=== PATIENT | male | born 1980 | race American Indian/Alaskan Native ===

== ENCOUNTER 2017-03-28 19:44 | Emergency (ER) | payer SELFPAY ==
[2017-03-28] MEDS ORDERED: ATIVAN IM ONE (20:30)
[2017-03-28] MEDS ORDERED: ATIVAN ONE (20:32)
[2017-03-28 21:41] LABS: Bilirubin,Urine NEG (Negative); Blood,Urine MOD (Negative); Color,Urine Straw (Yellow); Mucus,Urine FEW /HPF; Nitrite,Urine NEG (Negative); Urobilinogen,Urine < 2.0 mg/dL (<2.0)
[2017-03-28] MEDS ORDERED: KEPPRA 1,000 MG/NS 0.75% 100ML 1,000 MG/100 ML BAG IV ONE (21:41)
[2017-03-28 21:47] LABS: Amphetamine Screen,Urine PRESUMPTIVE NEGATIVE; Benzodiazepines Screen,Urine PRESUMPTIVE NEGATIVE; Cocaine Screen,Urine PRESUMPTIVE NEGATIVE; Methadone Screen,Urine PRESUMPTIVE NEGATIVE; Opiate Screen,Urine PRESUMPTIVE NEGATIVE
[2017-03-28 22:04] LABS: Cannabinoid Screen,Urine PRESUMPTIVE POSITIVE
[2017-03-28 22:11] LABS: Basophils % (Auto) 0.2 % (0.0-1.8); Eosinophils % (Auto) 0.3 % (0.0-4.3); Hemoglobin 17.5 gm/dl (11.8-15.2); Lymphocytes # (Auto) 1.6 K/mm3 (1.2-5.4); Lymphocytes % (Auto) 8.9 % (13.4-35.0); Mean Corpuscular HGB Conc 32 % (32-34); Mean Corpuscular Hemoglobin 29 pg (28-32); Mean Corpuscular Volume 90 fl (84-94); Monocytes # (Auto) 1.7 K/mm3 (0.0-0.8); Monocytes % (Auto) 9.3 % (0.0-7.3); Platelet Count 213 K/mm3 (140-440); Red Blood Count 5.98 M/mm3 (3.65-5.03); Red Cell Distribution Width 13.7 % (13.2-15.2)
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
[2017-03-28 22:25] LABS: BUN/Creatinine Ratio 12; Blood Urea Nitrogen 12 mg/dL (9-20); Calcium 9.9 mg/dL (8.4-10.2); Hemolysis Index 214
--- NOTE | 2017-03-28 22:56 | Cat Scan Report ---
FINAL REPORT EXAM: CT CERVICAL SPINE WO CON HISTORY: head injury TECHNIQUE: Spiral CT scanning of the cervical spine, with axial images and multiplanar reformations. PRIORS: None. FINDINGS: Mild degenerate spondylosis in C4-5 level. No acute compression deformity or gross malalignment of cervical vertebral bodies. No acute fracture identified. No acute, osseous central spinal canal encroachment. Paraspinal soft tissues grossly unremarkable. IMPRESSION: 1. No acute compression deformity or apparent fracture in the cervical spine.
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
--- NOTE | 2017-03-28 23:40 | XRay Report ---
FINAL REPORT PROCEDURE: XR WRIST 2V RT TECHNIQUE: RIGHT wrist radiographs, AP and lateral views. HISTORY: pain right wrist COMPARISON: No prior studies are available for comparison. FINDINGS: Fracture(s)and/or Dislocation(s): None. Alignment: Normal. Joint space(s): Normal. Soft tissues: Normal. Bone mineralization: Normal. Foreign bodies: None. IMPRESSION: Normal Examination
--- NOTE | 2017-03-28 23:42 | XRay Report ---
FINAL REPORT PROCEDURE: XR SHOULDER 2+V RT TECHNIQUE: Right shoulder radiographs including AP views in internal and external rotation and abduction. CPT 11933 HISTORY: pain right shoulder COMPARISON: No prior studies are available for comparison. FINDINGS: Fracture (s) and/or Dislocation(s): None . Joint space(s): Mild spur formation off the acromioclavicular joint. Soft tissues: Normal. Bone mineralization: Normal . Foreign bodies: None . IMPRESSION: No evidence of an acute fracture or dislocation. Mild arthritis
[2017-03-29] MEDS ORDERED: TYLENOL PO ONE (02:00)
[2017-03-29] MEDS ORDERED: TYLENOL ONE (02:05)
[2017-03-29 02:21] VITALS: BP 132/89
== END 2017-03-29 02:00 | disposition home or self-care (01) ==
LOC: ED 19:44
DX: R56.9 Unspecified convulsions (principal); S00.90XA Unspecified superficial injury of unspecified part of head, initial encounter; F10.920 Alcohol use, unspecified with intoxication, uncomplicated; M25.511 Pain in right shoulder; F17.200 Nicotine dependence, unspecified, uncomplicated; G89.29 Other chronic pain; Z88.6 Allergy status to analgesic agent; Y08.89XA Assault by other specified means, initial encounter; Y93.89 Activity, other specified; Y99.8 Other external cause status; Y92.090 Kitchen in other non-institutional residence as the place of occurrence of the external cause
CPT/HCPCS: 36415; 70450; 72125; 73030; 73100; 80048; 80184; 80307; 81001; 83735; 85025; 96365; 96366; 96372; 99284; G0480; J1953; J2060; 80320

== ENCOUNTER 2017-03-29 10:40 | Emergency (ER) | payer SELFPAY ==
[2017-03-29] MEDS ORDERED: ATIVAN IV ONE (14:44)
[2017-03-29] MEDS ORDERED: ATIVAN ONE (14:46)
[2017-03-29] MEDS ORDERED: KEPPRA 1,000 MG/NS 0.75% 100ML 1,000 MG/100 ML BAG IV ONE (16:09)
[2017-03-29 17:28] LABS: Basophils % (Auto) 0.3 % (0.0-1.8); Eosinophils % (Auto) 0.4 % (0.0-4.3); Hematocrit 45.5 % (35.5-45.6); Hemoglobin 15.6 gm/dl (11.8-15.2); Lymphocytes # (Auto) 1.9 K/mm3 (1.2-5.4); Lymphocytes % (Auto) 19.1 % (13.4-35.0); Mean Corpuscular HGB Conc 34 % (32-34); Mean Corpuscular Hemoglobin 30 pg (28-32); Mean Corpuscular Volume 87 fl (84-94); Monocytes % (Auto) 10.2 % (0.0-7.3); Platelet Count 196 K/mm3 (140-440); Red Blood Count 5.21 M/mm3 (3.65-5.03); Red Cell Distribution Width 13.6 % (13.2-15.2)
[2017-03-29 17:42] LABS: Alanine Aminotransferase 27 units/L (7-56); Albumin 4.5 g/dL (3.9-5); BUN/Creatinine Ratio 11; Bilirubin,Direct 0.3 mg/dL (0-0.2); Blood Urea Nitrogen 10 mg/dL (9-20); Calcium 9.4 mg/dL (8.4-10.2); Hemolysis Index 5
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
[2017-03-29] MEDS ORDERED: NORCO 5/325 PO ONE (18:57)
[2017-03-29 19:15] VITALS: BP 146/91
== END 2017-03-29 19:14 | disposition home or self-care (01) ==
LOC: ED 10:40
DX: G40.909 Epilepsy, unspecified, not intractable, without status epilepticus (principal); S00.83XA Contusion of other part of head, initial encounter; R07.89 Other chest pain; F17.200 Nicotine dependence, unspecified, uncomplicated; Z88.6 Allergy status to analgesic agent; Y04.0XXA Assault by unarmed brawl or fight, initial encounter; Y93.89 Activity, other specified; Y99.8 Other external cause status; Y92.89 Other specified places as the place of occurrence of the external cause
CPT/HCPCS: 36415; 80048; 80074; 80156; 83735; 85025; 96365; 96375; 99284; J1953; J2060

== ENCOUNTER 2017-08-09 22:07 | Emergency (ER) | payer SELFPAY ==
--- NOTE | 2017-08-09 23:01 | Emergency Department Report ---
ED Seizure HPI - General Chief Complaint: Seizure Stated Complaint: SEIZURE,HEADACHE Time Seen by Provider: 08/09/17 23:01 Source: patient, EMS Mode of arrival: Stretcher Limitations: No Limitations - History of Present Illness Initial Comments: Patient said he stopped taking his seizure medication 3 days ago because he was afraid his was going to run out of his medication. This evening he had a seizure. MD Complaint: seizure -: Sudden Description of Episode: loss of consciousness, tonic-clonic movement Witnessed:: No Trauma: Yes (head injury) Seizure History: known seizure disorder Possible Precipitating Event: head injury Associated Symptoms: denies other symptoms Treatments Prior to Arrival: none - Related Data Previous Rx's Medication Instructions Recorded Last Taken Type Ciprofloxacin HCl [Ciprofloxacin 500 mg PO Q12HR #10 tab 04/08/15 Unknown Rx TAB] HYDROcodone/APAP 5-325 [[place] 1 each PO Q6HR PRN #20 tablet 04/08/15 Unknown Rx 5/325] PHENobarbital 30 mg PO BID #60 tablet 04/08/15 Unknown Rx Promethazine [Phenergan TAB] 25 mg PO Q6HR PRN #30 tab 04/08/15 Unknown Rx carBAMazepine [TEGretol] 200 mg PO BID #60 tablet 04/08/15 Unknown Rx levETIRAcetam [Keppra] 500 mg PO BID #60 tablet 03/29/17 Unknown Rx PHENobarbital 30 mg PO BID #60 tablet 08/10/17 Unknown Rx levETIRAcetam [Keppra] 500 mg PO BID #60 tablet 08/10/17 Unknown Rx Allergies Allergy/AdvReac Type Severity Reaction Status Date / Time aspirin Allergy Hives Verified 03/29/17 11:26 ED Review of Systems ROS: Stated complaint: SEIZURE,HEADACHE Other details as noted in HPI Comment: All other systems reviewed and negative Constitutional: denies: chills, fever Eyes: denies: eye pain, eye discharge ENT: denies: dental pain Respiratory: denies: cough, shortness of breath Cardiovascular: denies: chest pain, palpitations, dyspnea on exertion Endocrine: no symptoms reported Gastrointestinal: denies: abdominal pain, nausea, vomiting, diarrhea Genitourinary: denies: urgency, dysuria, frequency Musculoskeletal: denies: back pain, joint swelling Skin: denies: rash, change in color Neurological: headache. denies: weakness, numbness, paresthesias Psychiatric: denies: anxiety, depression Hematological/Lymphatic: denies: easy bleeding, easy bruising ED Past Medical Hx - Past Medical History Previous Medical History?: Yes Hx Seizures: Yes Additional medical history: Patient states he has a "slipped disc "in his back for over 5 years for which he takes chronic pain medication. States he's been out of his pain medication for 2 days. - Surgical History Past Surgical History?: No - Social History Smoking Status: Current Every Day Smoker Substance Use Type: None - Medications Home Medications: Home Medications Medication Instructions Recorded Confirmed Last Taken Type Ciprofloxacin HCl [Ciprofloxacin 500 mg PO Q12HR #10 tab 04/08/15 Unknown Rx TAB] HYDROcodone/APAP 5-325 [[place] 1 each PO Q6HR PRN #20 tablet 04/08/15 Unknown Rx 5/325] PHENobarbital 30 mg PO BID #60 tablet 04/08/15 Unknown Rx Promethazine [Phenergan TAB] 25 mg PO Q6HR PRN #30 tab 04/08/15 Unknown Rx carBAMazepine [TEGretol] 200 mg PO BID #60 tablet 04/08/15 Unknown Rx levETIRAcetam [Keppra] 500 mg PO BID #60 tablet 03/29/17 Unknown Rx PHENobarbital 30 mg PO BID #60 tablet 08/10/17 Unknown Rx levETIRAcetam [Keppra] 500 mg PO BID #60 tablet 08/10/17 Unknown Rx ED Physical Exam - General Limitations: No Limitations General appearance: alert, in no apparent distress - Head Head exam: Present: atraumatic, normocephalic, normal inspection - Eye Eye exam: Present: normal appearance, PERRL, EOMI Pupils: Present: normal accommodation - ENT ENT exam: Present: normal exam, normal orophraynx, mucous membranes moist - Neck Neck exam: Present: normal inspection, full ROM. Absent: tenderness - Respiratory Respiratory exam: Present: normal lung sounds bilaterally. Absent: respiratory distress, wheezes, rhonchi - Cardiovascular Cardiovascular Exam: Present: regular rate, normal rhythm, normal heart sounds - GI/Abdominal GI/Abdominal exam: Present: soft, normal bowel sounds. Absent: distended, tenderness, guarding, rebound - Extremities Exam Extremities exam: Present: normal inspection, full ROM, normal capillary refill. Absent: tenderness - Back Exam Back exam: Present: normal inspection, full ROM. Absent: tenderness - Neurological Exam Neurological exam: Present: alert, oriented X3, CN II-XII intact - Psychiatric Psychiatric exam: Present: normal affect, normal mood - Skin Skin exam: Present: warm, dry, intact, normal color. Absent: rash ED Course Vital Signs 08/09/17 08/09/17 08/09/17 22:40 22:45 22:47 Temperature 98.9 F Pulse Rate 73 Respiratory 16 Rate Blood Pressure 128/87 116/82 O2 Sat by Pulse 95 99 96 Oximetry 08/09/17 08/09/17 08/09/17 22:56 23:00 23:15 Temperature Pulse Rate Respiratory 16 Rate Blood Pressure 120/87 132/80 O2 Sat by Pulse 96 99 95 Oximetry 08/09/17 08/09/17 08/10/17 23:30 23:45 00:00 Temperature Pulse Rate Respiratory Rate Blood Pressure 124/91 119/83 123/85 O2 Sat by Pulse 95 95 97 Oximetry 08/10/17 08/10/17 00:43 01:43 Temperature Pulse Rate Respiratory 16 16 Rate Blood Pressure O2 Sat by Pulse Oximetry ED Medical Decision Making - Lab Data Result diagrams: 08/09/17 23:39 08/09/17 23:39 - Radiology Data Radiology results: report reviewed, image reviewed - Medical Decision Making Seizure Disorder. Noncompliant with Seizure Medications. Critical care attestation.: If time is entered above; I have spent that time in minutes in the direct care of this critically ill patient, excluding procedure time. ED Disposition Clinical Impression: Seizure disorder, Noncompliance with medication regimen Disposition: - TO HOME OR SELFCARE Is pt being admited?: No Does the pt Need Aspirin: No Condition: Stable Instructions: Recurrent Seizures Adult (ED) Additional Instructions: Please follow up with the Neurologist Dr Morris tomorrow morning. Return to the ED if your condition worsens. Prescriptions: levETIRAcetam [Keppra] 500 mg PO BID #60 tablet PHENobarbital 30 mg PO BID #60 tablet Referrals: PRIMARY CARE, [Primary Care Provider] - 3-5 Days DREW MORRIS MD [Staff Physician] - 3-5 Days Time of Disposition: 02:33
[2017-08-09] MEDS ORDERED: KEPPRA 1,000 MG/NS 0.75% 100ML 1,000 MG/100 ML BAG IV ONE (23:53)
[2017-08-10 00:16] LABS: Hemoglobin 15.7 gm/dl (11.8-15.2); Mean Corpuscular HGB Conc 34 % (32-34); Mean Corpuscular Hemoglobin 31 pg (28-32); Mean Corpuscular Volume 90 fl (84-94); Platelet Count 205 K/mm3 (140-440); Red Blood Count 5.12 M/mm3 (3.65-5.03); Red Cell Distribution Width 13.5 % (13.2-15.2)
[2017-08-10] MEDS ORDERED: TYLENOL PO ONE (00:27)
[2017-08-10 00:31] LABS: Bilirubin,Urine NEG (Negative); Blood,Urine NEG (Negative); Color,Urine Yellow (Yellow); Mucus,Urine FEW /HPF
[2017-08-10 00:35] LABS: Alanine Aminotransferase 19 units/L (7-56); Albumin 4.5 g/dL (3.9-5)
[2017-08-10 00:39] LABS: Benzodiazepines Screen,Urine PRESUMPTIVE NEGATIVE; Methadone Screen,Urine PRESUMPTIVE NEGATIVE; Opiate Screen,Urine PRESUMPTIVE NEGATIVE
[2017-08-10 00:50] LABS: Bilirubin,Direct < 0.2 mg/dL (0-0.2)
--- NOTE | 2017-08-10 01:10 | Cat Scan Report ---
FINAL REPORT PROCEDURE: CT HEAD/BRAIN WO CON TECHNIQUE: Computerized tomography of the head was performed without contrast material. HISTORY: Seizure COMPARISON: 03/28/2017 FINDINGS: Skull and scalp: Mild soft tissue swelling over right parietal region of the skull, no skull fracture.. Paranasal sinuses: Normal. Ventricles and subarachnoid spaces: Normal. Cerebrum: No evidence of hemorrhage, acute infarction or mass . Cerebellum and brainstem: No evidence of hemorrhage, acute infarction or mass. Vasculature: Normal. Comments: None. IMPRESSION: There is no evidence of an acute intracranial process.
[2017-08-10 01:15] LABS: Amphetamine Screen,Urine PRESUMPTIVE POSITIVE; Cannabinoid Screen,Urine PRESUMPTIVE POSITIVE; Cocaine Screen,Urine PRESUMPTIVE POSITIVE
[2017-08-10 01:55] LABS: BUN/Creatinine Ratio 14; Blood Urea Nitrogen 11 mg/dL (9-20); Calcium 9.6 mg/dL (8.4-10.2); Hemolysis Index 9
[2017-08-10 05:48] VITALS: BP 111/78
== END 2017-08-10 06:03 | disposition home or self-care (01) ==
LOC: ED 22:07
DX: G40.909 Epilepsy, unspecified, not intractable, without status epilepticus (principal); F17.200 Nicotine dependence, unspecified, uncomplicated; Z88.6 Allergy status to analgesic agent
CPT/HCPCS: 36415; 70450; 80048; 80074; 80184; 80307; 81001; 85027; 96365; 99285; J1953

== ENCOUNTER 2017-09-13 12:55 | Emergency (ER) | payer SELFPAY ==
[2017-09-13 13:15] VITALS: BP 151/102
[2017-09-13] MEDS ORDERED: LIDOCAINE VISCOUS 2% PO ONE (14:41)
[2017-09-13] MEDS ORDERED: BICILLIN L-A IM ONE (14:41)
[2017-09-13] MEDS ORDERED: TYLENOL PO ONE (14:42)
--- NOTE | 2017-09-13 14:48 | Emergency Department Report ---
ED ENT HPI - General Chief complaint: Sore Throat Stated complaint: THROAT PAIN Time Seen by Provider: 09/13/17 14:37 Source: patient Mode of arrival: Ambulatory Limitations: No Limitations - History of Present Illness Initial comments: This is a 37-year-old male nontoxic, well nourished in appearance, no acute signs of distress presents to the ED with c/o of sore throat. Patient describes sore throat as swallowing razer blades. Patient denies any fever, chills, headache, stiff neck, nausea, vomiting, chest pain, shortness of breath, numbness or tingling. Patient denies any drooling or hoarseness. Patient stated allergies to aspirin. PMH includes ARAM. complaint: sore throat -: days(s) (2) Location: throat Severity: mild Severity scale (0 -10): 8 Quality: aching Consistency: constant Improves with: none Worsens with: swallowing Associated Symptoms: pain with swallowing, sore throat. denies: fever, cough, gum swelling, toothache, tinnitus, hearing loss, discharge from ear, rhinorrhea - Related Data Previous Rx's Medication Instructions Recorded Last Taken Type Ciprofloxacin HCl [Ciprofloxacin 500 mg PO Q12HR #10 tab 04/08/15 Unknown Rx TAB] HYDROcodone/APAP 5-325 [[place] 1 each PO Q6HR PRN #20 tablet 04/08/15 Unknown Rx 5/325] PHENobarbital 30 mg PO BID #60 tablet 04/08/15 Unknown Rx Promethazine [Phenergan TAB] 25 mg PO Q6HR PRN #30 tab 04/08/15 Unknown Rx carBAMazepine [TEGretol] 200 mg PO BID #60 tablet 04/08/15 Unknown Rx levETIRAcetam [Keppra] 500 mg PO BID #60 tablet 03/29/17 Unknown Rx PHENobarbital 30 mg PO BID #60 tablet 08/10/17 Unknown Rx levETIRAcetam [Keppra] 500 mg PO BID #60 tablet 08/10/17 Unknown Rx Acetaminophen 500 mg PO Q8H PRN #30 tablet 09/13/17 Unknown Rx Nystas/Diphen/Xyl Visc/Mylanta 15 ml MM Q6H PRN 5 Days ml 09/13/17 Unknown Rx [Magic Mouthwash] Allergies Allergy/AdvReac Type Severity Reaction Status Date / Time aspirin Allergy Hives Verified 03/29/17 11:26 ED Dental HPI - General Chief complaint: Sore Throat Stated complaint: THROAT PAIN Time Seen by Provider: 09/13/17 14:37 Source: patient Mode of arrival: Ambulatory Limitations: No Limitations - Related Data Previous Rx's Medication Instructions Recorded Last Taken Type Ciprofloxacin HCl [Ciprofloxacin 500 mg PO Q12HR #10 tab 04/08/15 Unknown Rx TAB] HYDROcodone/APAP 5-325 [[place] 1 each PO Q6HR PRN #20 tablet 04/08/15 Unknown Rx 5/325] PHENobarbital 30 mg PO BID #60 tablet 04/08/15 Unknown Rx Promethazine [Phenergan TAB] 25 mg PO Q6HR PRN #30 tab 04/08/15 Unknown Rx carBAMazepine [TEGretol] 200 mg PO BID #60 tablet 04/08/15 Unknown Rx levETIRAcetam [Keppra] 500 mg PO BID #60 tablet 03/29/17 Unknown Rx PHENobarbital 30 mg PO BID #60 tablet 08/10/17 Unknown Rx levETIRAcetam [Keppra] 500 mg PO BID #60 tablet 08/10/17 Unknown Rx Acetaminophen 500 mg PO Q8H PRN #30 tablet 09/13/17 Unknown Rx Nystas/Diphen/Xyl Visc/Mylanta 15 ml MM Q6H PRN 5 Days ml 09/13/17 Unknown Rx [Magic Mouthwash] Allergies Allergy/AdvReac Type Severity Reaction Status Date / Time aspirin Allergy Hives Verified 03/29/17 11:26 ED Review of Systems ROS: Stated complaint: THROAT PAIN Other details as noted in HPI Constitutional: denies: chills, fever Eyes: denies: eye pain, eye discharge, vision change ENT: throat pain. denies: ear pain Respiratory: denies: cough, shortness of breath, wheezing Cardiovascular: denies: chest pain, palpitations Endocrine: no symptoms reported Gastrointestinal: denies: abdominal pain, nausea, diarrhea Genitourinary: denies: urgency, dysuria Musculoskeletal: denies: back pain, joint swelling, arthralgia Skin: denies: rash, lesions Neurological: denies: headache, weakness, paresthesias Psychiatric: denies: anxiety, depression Hematological/Lymphatic: denies: easy bleeding, easy bruising ED Past Medical Hx - Past Medical History Hx Seizures: Yes Additional medical history: Patient states he has a "slipped disc "in his back for over 5 years for which he takes chronic pain medication. States he's been out of his pain medication for 2 days. - Surgical History Past Surgical History?: No - Social History Smoking Status: Current Every Day Smoker Substance Use Type: None - Medications Home Medications: Home Medications Medication Instructions Recorded Confirmed Last Taken Type Ciprofloxacin HCl [Ciprofloxacin 500 mg PO Q12HR #10 tab 04/08/15 Unknown Rx TAB] HYDROcodone/APAP 5-325 [[place] 1 each PO Q6HR PRN #20 tablet 04/08/15 Unknown Rx 5/325] PHENobarbital 30 mg PO BID #60 tablet 04/08/15 Unknown Rx Promethazine [Phenergan TAB] 25 mg PO Q6HR PRN #30 tab 04/08/15 Unknown Rx carBAMazepine [TEGretol] 200 mg PO BID #60 tablet 04/08/15 Unknown Rx levETIRAcetam [Keppra] 500 mg PO BID #60 tablet 03/29/17 Unknown Rx PHENobarbital 30 mg PO BID #60 tablet 08/10/17 Unknown Rx levETIRAcetam [Keppra] 500 mg PO BID #60 tablet 08/10/17 Unknown Rx Acetaminophen 500 mg PO Q8H PRN #30 tablet 09/13/17 Unknown Rx Nystas/Diphen/Xyl Visc/Mylanta 15 ml MM Q6H PRN 5 Days ml 09/13/17 Unknown Rx [Magic Mouthwash] ED Physical Exam - General Limitations: No Limitations General appearance: alert, in no apparent distress - Head Head exam: Present: atraumatic, normocephalic - Eye Eye exam: Present: normal appearance Pupils: Present: normal accommodation - ENT ENT exam: Present: mucous membranes moist, TM's normal bilaterally, normal external ear exam - Expanded ENT Exam Expanded Ear exam: Present: normal external inspection Mouth exam: Present: normal external inspection, tongue normal. Absent: drooling, trismus, muffled voice, tongue elevation, laceration Teeth exam: Present: normal inspection Throat exam: Positive: tonsillar erythema, tonsillomegaly (2+), tonsillar exudate, other (Uvula midline. No abscess or swelling noted.). Negative: R peritonsillar mass, L peritonsillar mass - Neck Neck exam: Present: normal inspection, full ROM, lymphadenopathy (bilateral tonsillar). Absent: tenderness, meningismus - Respiratory Respiratory exam: Present: normal lung sounds bilaterally. Absent: respiratory distress, wheezes, rales, rhonchi, stridor, chest wall tenderness, accessory muscle use, decreased breath sounds, prolonged expiratory - Cardiovascular Cardiovascular Exam: Present: regular rate, normal rhythm, normal heart sounds. Absent: bradycardia, tachycardia, irregular rhythm, systolic murmur, diastolic murmur, rubs, gallop - GI/Abdominal GI/Abdominal exam: Present: soft, normal bowel sounds - Rectal Rectal exam: Present: deferred - Extremities Exam Extremities exam: Present: normal inspection, full ROM, normal capillary refill - Back Exam Back exam: Present: normal inspection, full ROM - Neurological Exam Neurological exam: Present: alert, oriented X3, normal gait - Psychiatric Psychiatric exam: Present: normal affect, normal mood - Skin Skin exam: Present: warm, dry, intact, normal color. Absent: rash ED Course Vital Signs 09/13/17 13:11 Temperature 98.5 F Pulse Rate 85 Respiratory 16 Rate Blood Pressure 151/102 O2 Sat by Pulse 99 Oximetry - Reevaluation(s) Reevaluation #1: 09/13/17 14:49 Patient is speaking in full sentences with no signs of distress noted. ED Medical Decision Making - Medical Decision Making This is a 37-year-old male that presents with tonsillitis. Patient is stable was examined by me. There is no drooling. No tonsillar abscess noted. Uvula is midline. Patient received Bicillin IM in the ED. Vital signs are stable. Patient is not febrile and normal heart rate. Patient was instructed to Follow- up with a primary care doctor in 3-5 days or if symptoms worsen and continue return to emergency room as soon as possible. At time of discharge, the patient does not seem toxic or ill in appearance. No acute signs of distress noted. Patient agrees to discharge treatment plan of care. No further questions noted by the patient. Critical care attestation.: If time is entered above; I have spent that time in minutes in the direct care of this critically ill patient, excluding procedure time. ED Disposition Clinical Impression: Tonsillitis with exudate Disposition: - TO HOME OR SELFCARE Is pt being admited?: No Does the pt Need Aspirin: No Condition: Stable Instructions: Tonsillitis (ED) Additional Instructions: Follow-up with a primary care doctor in 3-5 days or if symptoms worsen and continue return to emergency room as soon as possible. Prescriptions: Acetaminophen 500 mg PO Q8H PRN #30 tablet PRN Reason: Pain , Severe (7-10) Nystas/Diphen/Xyl Visc/Mylanta [Magic Mouthwash] 15 ml MM Q6H PRN 5 Days ml PRN Reason: Sore Throat Referrals: PRIMARY CAREMD [Primary Care Provider] - 3-5 Days ROBIN ALAMO MD [Staff Physician] - 3-5 Days [facility] [Outside] - 3-5 Days [facility] [Outside] - 3-5 Days BRENNAN JACKSON MD [Staff Physician] - 3-5 Days Forms: Work/School Release Form(ED)
== END 2017-09-13 15:04 | disposition home or self-care (01) ==
LOC: ED 12:55
DX: J03.90 Acute tonsillitis, unspecified (principal); R56.9 Unspecified convulsions; F17.200 Nicotine dependence, unspecified, uncomplicated; Z88.6 Allergy status to analgesic agent; Z79.899 Other long term (current) drug therapy
CPT/HCPCS: 96372; 99282; J0561

== ENCOUNTER 2018-03-21 17:11 | Emergency (ER) | payer SELFPAY ==
[2018-03-21 18:44] LABS: Hematocrit 46.9 % (35.5-45.6); Hemoglobin 15.6 gm/dl (11.8-15.2); Mean Corpuscular HGB Conc 33 % (32-34); Mean Corpuscular Volume 91 fl (84-94); Platelet Count 215 K/mm3 (140-440); Red Blood Count 5.15 M/mm3 (3.65-5.03); Red Cell Distribution Width 13.2 % (13.2-15.2)
[2018-03-21 19:29] LABS: BUN/Creatinine Ratio 10; Blood Urea Nitrogen 11 mg/dL (9-20); Calcium 9.2 mg/dL (8.4-10.2); Hemolysis Index 13
[2018-03-21] MEDS ORDERED: NACL 0.9% 1000 ML 1,000 ML IV ONE (19:51)
[2018-03-21] MEDS ORDERED: DepaCON 500 MG in NACL 0.9% 100 ML IV ONE (19:51)
[2018-03-21] MEDS ORDERED: SUBLIMAZE IV ONE ×2 (19:51→19:52)
--- NOTE | 2018-03-21 19:53 | Emergency Department Report ---
ED General Adult HPI - General Chief complaint: Seizure Stated complaint: LT SIDE PAIN Time Seen by Provider: 03/21/18 19:33 Source: patient, family, EMS (ems notes not available at time of chart dictation), RN notes reviewed, old records reviewed Mode of arrival: Stretcher Limitations: Physical Limitation - History of Present Illness Initial comments: This is a 38-year-old gentleman, reported history of seizure disorder, was previously taking valproic acid, and has not been on antiepileptic medication for a few months. Patient is accompanied by a significant other, and as per reported history, patient had a seizure today, and landed on his left chest wall and hemithorax. He doesn't really recall the seizure, but he denies severe headache, midline neck pain, chest pain, has left flank and left upper quadrant abdominal pain, and bilateral anterior thigh pain. He denies fevers and chills, denies extremity weakness or numbness, and reports noncompliance with antiepileptic medication. His leg pain is sharp and achy, throbbing, increases with palpation and decreases with rest. It does not radiate anywhere. His left upper quadrant pain and left lateral rib pain are sharp, increased with palpation and decreased with rest. They do not radiate anywhere. -: Sudden Location: chest (left distal lateral chest), abdomen, left, right, lower extremity Radiation: non-radiation Quality: other Consistency: other Improves with: other Associated Symptoms: seizure. denies: confusion, chest pain, cough, diaphoresis, fever/chills - Related Data Previous Rx's Medication Instructions Recorded Last Taken Type carBAMazepine [TEGretol] 200 mg PO BID #60 tablet 04/08/15 Unknown Rx PHENobarbital 30 mg PO BID #60 tablet 08/10/17 Unknown Rx Acetaminophen [Tylenol Arthritis] 650 mg PO Q6HR PRN #30 tablet.er 03/21/18 Unk nown Rx Valproic Acid 500 mg PO BID #120 capsule 03/21/18 Unknown Rx Allergies Allergy/AdvReac Type Severity Reaction Status Date / Time aspirin Allergy Hives Verified 03/29/17 11:26 ED Review of Systems ROS: Stated complaint: LT SIDE PAIN Other details as noted in HPI Constitutional: malaise. denies: fever Eyes: denies: vision change ENT: denies: epistaxis Cardiovascular: other (left lateral rib pain) Gastrointestinal: abdominal pain Musculoskeletal: arthralgia, myalgia. denies: back pain Skin: denies: lesions Neurological: denies: weakness Psychiatric: anxiety ED Past Medical Hx - Past Medical History Previous Medical History?: Yes Hx Seizures: Yes Additional medical history: Patient states he has a "slipped disc "in his back for over 5 years for which he takes chronic pain medication. States he's been out of his pain medication for 2 days. - Social History Smoking Status: Current Every Day Smoker Substance Use Type: Alcohol - Medications Home Medications: Home Medications Medication Instructions Recorded Confirmed Last Taken Type carBAMazepine [TEGretol] 200 mg PO BID #60 tablet 04/08/15 03/21/18 Unknown Rx PHENobarbital 30 mg PO BID #60 tablet 08/10/17 03/21/18 Unknown Rx Acetaminophen [Tylenol Arthritis] 650 mg PO Q6HR PRN #30 tablet.er 03/21/18 Unknown Rx Valproic Acid 500 mg PO BID #120 capsule 03/21/18 Unknown Rx ED Physical Exam - General Limitations: Physical Limitation General appearance: alert, anxious - Head Head exam: Present: atraumatic, normocephalic - Eye Eye exam: Present: normal appearance, PERRL, EOMI, other (visual acuity intact to finger counting, color perception, reading at a close distance). Absent: nystagmus - ENT ENT exam: Present: normal exam, normal orophraynx, mucous membranes moist, normal external ear exam - Neck Neck exam: Present: normal inspection, full ROM. Absent: tenderness, meningismus - Respiratory Respiratory exam: Present: normal lung sounds bilaterally, chest wall tenderness (left lateral thoracic tenderness). Absent: respiratory distress - Cardiovascular Cardiovascular Exam: Present: regular rate, normal rhythm, normal heart sounds. Absent: bradycardia, tachycardia, irregular rhythm, systolic murmur, diastolic murmur, rubs, gallop - GI/Abdominal GI/Abdominal exam: Present: soft, tenderness (left upper quadrant tenderness). Absent: distended, guarding, rebound, rigid, pulsatile mass - Rectal Rectal exam: Present: deferred - Extremities Exam Extremities exam: Present: normal inspection, full ROM, tenderness (there is anterior thyroid tenderness.), other (there is no long bony tenderness. Muscular compartment soft. No pain with passive range of motion of the great toes. 2+ pulses in the upper, lower extremities bilaterally.). Absent: calf tenderness - Back Exam Back exam: Present: normal inspection, full ROM. Absent: paraspinal tenderness, vertebral tenderness - Neurological Exam Neurological exam: Present: alert, oriented X3, other (Extraocular movements intact. Tongue midline. No facial droop. Facial sensation intact to light touch in the V1, V2, V3 distribution bilaterally. 5 and 5 strength in 4 extremities.. Sensation is intact to light touch in 4 extremities.). Absent: motor sensory deficit - Psychiatric Psychiatric exam: Present: anxious - Skin Skin exam: Present: warm, dry, intact, normal color. Absent: rash ED Course Vital Signs 03/21/18 03/21/18 03/21/18 18:04 18:06 18:15 Temperature 98.1 F Pulse Rate 59 L 67 Respiratory 10 L 10 L Rate Blood Pressure 134/91 134/91 138/72 Blood Pressure [Right] O2 Sat by Pulse 98 Oximetry 03/21/18 03/21/18 03/21/18 18:30 18:45 19:00 Temperature Pulse Rate 66 56 L 55 L Respiratory 11 L 11 L 13 Rate Blood Pressure 134/91 139/80 137/85 Blood Pressure [Right] O2 Sat by Pulse Oximetry 03/21/18 03/21/18 03/21/18 19:15 19:30 19:46 Temperature Pulse Rate 60 71 63 Respiratory 11 L 9 L 12 Rate Blood Pressure 130/79 130/79 130/79 Blood Pressure [Right] O2 Sat by Pulse Oximetry 03/21/18 03/21/18 03/21/18 20:28 20:30 20:32 Temperature Pulse Rate 62 Respiratory 14 Rate Blood Pressure 130/79 130/79 Blood Pressure 136/86 [Right] O2 Sat by Pulse 94 98 98 Oximetry 03/21/18 03/21/18 20:46 21:00 Temperature Pulse Rate Respiratory Rate Blood Pressure 136/86 121/81 Blood Pressure [Right] O2 Sat by Pulse 98 94 Oximetry - Reevaluation(s) Reevaluation #1: 03/21/18 21:56 Differential diagnosis, including but not limited to: Breakthrough seizure, intracranial injury, thoracic injury, rib fracture, rib contusion, splenic injury, intra-abdominal injury, medication noncompliance Assessment and plan: 30-year-old gentleman with presumed breakthrough seizure secondary to medication noncompliance, with bilateral anterior quadricep pain, left upper quadrant pain, left lateral rib pain. Patient clinically sober at this point in time, with a GCS of 15, with an NIH score of 0. Primary, secondary survey not remarkable for any significant penetrating injury. We will treat the patient's pain, load with valproic acid, and obtain CT scan of the abdomen and pelvis, noncontrast CT scan of the brain. Patient is clinically sober at this time. The cervical spine is cleared through nexus and bruneian c spine rule We'll reassess once his initial data points have resulted. 03/21/18 22:01 Reevaluation #2: 03/21/18 23:13 CT scan of the brain is negative for acute disease. CT scan of the abdomen pelvis is negative for acute disease. The patient is observed in the emergency room for a few hours, without clinical decompensation. Upon reassessment the patient is sleeping comfortably, and in no acute distress. He is able to walk with a steady gait, with a slight limp. And he will be discharged with a prescription for valproic acid, instructions to not drive or operate motor vehicles for the next 6 months, and to follow up with an outpatient primary care doctor or neurologist. He is counseled to expect to be sore. 03/21/18 23:28 ED Medical Decision Making - Lab Data Result diagrams: 03/21/18 18:27 03/21/18 18:27 Vital Signs 03/21/18 03/21/18 03/21/18 18:04 18:06 18:15 Temperature 98.1 F Pulse Rate 59 L 67 Respiratory 10 L 10 L Rate Blood Pressure 134/91 134/91 138/72 Blood Pressure [Right] O2 Sat by Pulse 98 Oximetry 03/21/18 03/21/18 03/21/18 18:30 18:45 19:00 Temperature Pulse Rate 66 56 L 55 L Respiratory 11 L 11 L 13 Rate Blood Pressure 134/91 139/80 137/85 Blood Pressure [Right] O2 Sat by Pulse Oximetry 03/21/18 03/21/18 03/21/18 19:15 19:30 19:46 Temperature Pulse Rate 60 71 63 Respiratory 11 L 9 L 12 Rate Blood Pressure 130/79 130/79 130/79 Blood Pressure [Right] O2 Sat by Pulse Oximetry 03/21/18 03/21/18 03/21/18 20:28 20:30 20:32 Temperature Pulse Rate 62 Respiratory 14 Rate Blood Pressure 130/79 130/79 Blood Pressure 136/86 [Right] O2 Sat by Pulse 94 98 98 Oximetry Lab Results 03/21/18 03/21/18 Range/Units 18:27 18:27 WBC 6.8 (4.5-11.0) K/mm3 RBC 5.15 H (3.65-5.03) M/mm3 Hgb 15.6 H (11.8-15.2) gm/dl Hct 46.9 H (35.5-45.6) % MCV 91 (84-94) fl MCH 30 (28-32) pg MCHC 33 (32-34) % RDW 13.2 (13.2-15.2) % Plt Count 215 (140-440) K/mm3 Sodium 139 (137-145) mmol/L Potassium 3.9 (3.6-5.0) mmol/L Chloride 104.2 (98-107) mmol/L Carbon Dioxide 25 (22-30) mmol/L Anion Gap 14 mmol/L BUN 11 (9-20) mg/dL Creatinine 1.1 (0.8-1.5) mg/dL Estimated GFR > 60 ml/min BUN/Creatinine Ratio 10 % Glucose 89 (75-100) mg/dL Calcium 9.2 (8.4-10.2) mg/dL Total Creatine Kinase 462 H (55-170) units/L - Radiology Data Radiology results: report reviewed, image reviewed Rib series x-ray negative for acute disease. Bilateral femur x-ray negative for acute disease. X-ray of the pelvis is negative for acute disease. Critical care attestation.: If time is entered above; I have spent that time in minutes in the direct care of this critically ill patient, excluding procedure time. ED Disposition Clinical Impression: History of seizure, Left flank pain Disposition: DC-01 TO HOME OR SELFCARE Is pt being admited?: No Does the pt Need Aspirin: No Condition: Good Additional Instructions: Rest, and avoid heavy lifting. Avoid strenuous physical activities. Take the medications as needed/directed. Do not drive or operate motor vehicles for the next 6 months. Follow up with a primary care doctor or neurology specialist within the next 7-10 days. Return to the ER right away with new pain, worsened pain, migration of pain, projectile vomiting, change in mental status, confusion, inability to speak, inability to breathe, new, worsening or different symptoms. Prescriptions: Acetaminophen [Tylenol Arthritis] 650 mg PO Q6HR PRN #30 tablet.er PRN Reason: Pain Valproic Acid 500 mg PO BID #120 capsule Referrals: RIC CHAMBERLAIN MD [Referring] - 7-10 days ANDREA HAWKINS MD [Staff Physician] - 7-10 days DREW MORRIS MD [Staff Physician] - 7-[address] [facility] [Provider Group] - 7-10 days
--- NOTE | 2018-03-21 21:50 | XRay Report ---
FINAL REPORT EXAM: XR PELVIS 1-2V HISTORY: fall leg pain TECHNIQUE: AP pelvis Comparison: CT performed same day FINDINGS: Normal bony mineralization. No fracture or dislocation. IMPRESSION: No fracture or dislocation bony pelvis.
--- NOTE | 2018-03-21 21:53 | XRay Report ---
FINAL REPORT EXAM: XR FEMUR BILAT 2+V HISTORY: bilateral leg pain after sezirue TECHNIQUE: Four views of each femur were performed Comparison: None FINDINGS: Normal bony mineralization. No fracture or dislocation. No radiopaque foreign body or soft tissue gas. No degenerative arthritis. IMPRESSION: Negative bilateral femur plain-film series for acute bony injury following seizure.
--- NOTE | 2018-03-21 21:55 | XRay Report ---
FINAL REPORT EXAM: XR RIBS UNI W PA CHEST 3+V LT HISTORY: fall, left-sided rib pain TECHNIQUE: Frontal chest x-ray with four views of the left ribs Comparison: Lung bases from CT abdomen and pelvis today FINDINGS: Normal heart size. Lungs are clear and well expanded without focal infiltrate or consolidation. Rib detail images demonstrate no definite displaced rib fracture or nondisplaced rib fracture. IMPRESSION: No rib fractures or pneumothorax. Unremarkable single-view chest x-ray.
--- NOTE | 2018-03-21 22:28 | Cat Scan Report ---
FINAL REPORT PROCEDURE: CT HEAD/BRAIN WO CON TECHNIQUE: Computerized tomography of the head was performed without contrast material. HISTORY: sz head trauma COMPARISON: March 28, 2017 FINDINGS: Skull and scalp: Right parietal soft tissue swelling. Paranasal sinuses: Normal. Ventricles and subarachnoid spaces: Normal. Cerebrum: No evidence of hemorrhage, acute infarction or mass . Cerebellum and brainstem: No evidence of hemorrhage, acute infarction or mass. Vasculature: Normal. Comments: None. IMPRESSION: No acute intracranial abnormality.
--- NOTE | 2018-03-21 22:57 | Cat Scan Report ---
FINAL REPORT PROCEDURE: CT ABDOMEN PELVIS W CON TECHNIQUE: Computerized axial tomography of the abdomen and pelvis was performed after the IV inject ion of iodinated nonionic contrast. HISTORY: left-sided flank and abdominal pain after blunt tr COMPARISON: No prior studies are available for comparison. FINDINGS: Visualized lower thorax: No significant abnormality. Liver: Hepatomegaly. No dominant mass or biliary dilatation. Spleen: Normal size and attenuation. Gallbladder and biliary system: Normal. Pancreas: Normal. Adrenals: Normal. Kidneys: There are small cysts. No hydronephrosis. GI tract: Normal. No dilated loops of bowel. Appendix is normal. Lymph nodes and mesentery: Normal. Vasculature: Normal. Bladder: Normal. Reproductive organs: Normal. Peritoneum: No free fluid. Musculoskeletal structures: No significant abnormality. Other: None. IMPRESSION: No dominant mass or obstruction. Hepatomegaly. No biliary dilatation.
[2018-03-21 23:38] VITALS: BP 118/71
== END 2018-03-21 23:38 | disposition home or self-care (01) ==
LOC: ED 17:11
DX: G40.909 Epilepsy, unspecified, not intractable, without status epilepticus (principal); F41.9 Anxiety disorder, unspecified; F17.200 Nicotine dependence, unspecified, uncomplicated; Z88.6 Allergy status to analgesic agent
CPT/HCPCS: 36415; 70450; 71101; 72170; 73552; 74177; 80048; 82550; 85027; 96365; 96375; 99285; J3010; J7030; Q9967

== ENCOUNTER 2019-04-12 04:26 | Emergency (ER) | payer SELFPAY ==
[2019-04-12] MEDS ORDERED: levETIRAcetam 1000 MG/NS 0.75% 1,000 MG/100 ML BAG IV ONE ×2 (05:01)
[2019-04-12 05:45] LABS: Basophils % (Auto) 0.5 % (0.0-1.8); Eosinophils # (Auto) 0.2 K/mm3 (0.0-0.4); Eosinophils % (Auto) 2.2 % (0.0-4.3); Hematocrit 44.9 % (35.5-45.6); Hemoglobin 15.3 gm/dl (11.8-15.2); Lymphocytes # (Auto) 2.2 K/mm3 (1.2-5.4); Lymphocytes % (Auto) 30.2 % (13.4-35.0); Mean Corpuscular HGB Conc 34 % (32-34); Mean Corpuscular Volume 90 fl (84-94); Monocytes # (Auto) 0.7 K/mm3 (0.0-0.8); Platelet Count 225 K/mm3 (140-440); Red Blood Count 4.98 M/mm3 (3.65-5.03); Red Cell Distribution Width 13.3 % (13.2-15.2)
[2019-04-12 06:03] LABS: Alanine Aminotransferase 16 units/L (7-56); Albumin 4.5 g/dL (3.9-5); BUN/Creatinine Ratio 11; Blood Urea Nitrogen 9 mg/dL (9-20); Calcium 9.8 mg/dL (8.4-10.2); Hemolysis Index 4
[2019-04-12] MEDS ORDERED: ACETAMINOPHEN 325 MG TAB PO ONE (06:14)
--- NOTE | 2019-04-12 06:14 | Emergency Department Report ---
HPI - General Chief Complaint: Seizure Time Seen by Provider: 04/12/19 06:01 - HPI HPI: 39-year-old -[place] male presents to the emergency department complaint of a seizure that was witnessed by family just prior to presentation. Apparently the seizure lasted about 3-4 minutes. At the time of my examination the patient is awake but complaining of a headache and may still be slightly postictal. He supposedly hit his head on the dresser while having his seizure. He does have a seizure history but they say it has been many months since his last seizure. He is on Depakote and questionably is on Keppra. Apparently he has been compliant with his medications but family says there is also some recent illicit drug use, cocaine and marijuana. He does not have a primary care physician or neurologist. ED Past Medical Hx - Past Medical History Previous Medical History?: Yes Hx Seizures: Yes Additional medical history: Patient states he has a "slipped disc "in his back for over 5 years for which he takes chronic pain medication. States he's been out of his pain medication for 2 days. - Surgical History Past Surgical History?: No - Social History Smoking Status: Current Every Day Smoker Substance Use Type: Alcohol, Cocaine, Marijuana - Medications Home Medications: Home Medications Medication Instructions Recorded Confirmed Last Taken Type carBAMazepine [TEGretol] 200 mg PO BID #60 tablet 04/08/15 03/21/18 Unknown Rx PHENobarbitaL [PHENobarbital] 30 mg PO BID #60 tablet 08/10/17 03/21/18 Unknown Rx Acetaminophen [Tylenol Arthritis] 650 mg PO Q6HR PRN #30 tablet.er 03/21/18 Unknown Rx Valproic Acid 500 mg PO BID #120 capsule 03/21/[address] [DepaKOTE DR] 500 mg PO BID #60 tablet 04/12/19 Unknown Rx Ibuprofen [Motrin 600 MG tab] 600 mg PO Q8H PRN #20 tablet 04/12/19 Unknown Rx ED Review of Systems ROS: Stated complaint: SEIZURE Other details as noted in HPI Comment: All other systems reviewed and negative Constitutional: denies: chills, fever Eyes: denies: eye pain, vision change ENT: denies: ear pain, throat pain Respiratory: denies: cough, shortness of breath Cardiovascular: denies: chest pain, palpitations Gastrointestinal: denies: abdominal pain, vomiting Genitourinary: denies: dysuria, discharge Musculoskeletal: denies: back pain, arthralgia Skin: denies: rash, lesions Neurological: headache, other (seizure) Physical Exam - Physical Exam Vital Signs: Vital Signs 04/12/19 04/12/19 04/12/19 04:44 05:00 05:44 Temperature 97.5 F L Pulse Rate 79 79 Respiratory 16 16 18 Rate Blood Pressure 136/86 Blood Pressure 121/71 [Right] O2 Sat by Pulse 98 96 96 Oximetry Physical Exam: GENERAL: The patient is well-developed well-nourished. HEENT: Normocephalic. Atraumatic. Patient has moist mucous membranes. EYES: Extraocular motions are intact. Pupils equal and reactive to light bilaterally. No nystagmus. NECK: Supple. Trachea is midline. CHEST/LUNGS: Clear to auscultation. There is no respiratory distress noted. HEART/CARDIOVASCULAR: Regular. There is no tachycardia. There is no murmur. ABDOMEN: Abdomen is soft, nontender. Patient has normal bowel sounds. There is no abdominal distention. SKIN:Skin is warm and dry. . NEURO: The patient is sleepy but is easily arousable. Once awake he is oriented and cooperative. The patient has no focal neurologic deficits. Normal speech. Cranial nerves II through XII grossly intact. MUSCULOSKELETAL: There is no tenderness or deformity. There is no evidence of acute injury. ED Course Vital Signs 04/12/19 04/12/19 04/12/19 04:44 05:00 05:44 Temperature 97.5 F L Pulse Rate 79 79 Respiratory 16 16 18 Rate Blood Pressure 136/86 Blood Pressure 121/71 [Right] O2 Sat by Pulse 98 96 96 Oximetry ED Medical Decision Making - Lab Data Result diagrams: 04/12/19 05:29 04/12/19 05:29 - Radiology Data Radiology results: report reviewed CT of the head without contrast does not show any bleed, shift, mass, ischemia, or any other acute process - Medical Decision Making This patient presents to the emergency department after having a witnessed seizure prior to arrival. He appears slightly postictal as he is very sleepy b ut he is easily arousable and once awake he is oriented and cooperative. He does not have any focal, motor or sensory deficits and his cranial nerves are intact. Patient was loaded with Keppra prior to my arrival in shift starting. He had a CT scan of the head that did not show any bleed, shift, mass, ischemia, or any other acute process. The rest of the patient's labs were mostly unremarkable except for a blood alcohol level of 0.06, showing that he had some alcohol last night, as well as a urine drug screen positive for marijuana and cocaine. The patient's Depakote level was also subtherapeutic. All of these things together most likely contributed to the patient's breakthrough seizure. The patient was reevaluated multiple times over almost 5 hours in the emergency department and there has been no further seizure-like activity. The patient has woken up and is much more alert. His vital signs have been stable throughout his ED course included been afebrile. The patient was given an extra Depakote in order to try and get him therapeutic. We discussed staying away from any a lcohol or illicit drug use as this will lower his seizure threshold. The patient was given referrals for primary care and neurology. He will return to the emergency Department with any worsening symptoms or any acute distress. - Differential Diagnosis substance abuse, epilepsy, subtherapeutic medication, subarachnoid Critical Care Time: No Critical care attestation.: If time is entered above; I have spent that time in minutes in the direct care of this critically ill patient, excluding procedure time. ED Disposition Clinical Impression: Alcohol use, Cocaine use, Seizure, Seizure secondary to subtherapeutic anticonvulsant medication Disposition: DC-01 TO HOME OR SELFCARE Is pt being admited?: No Condition: Stable Instructions: Cocaine Abuse (ED), Recurrent Seizures Adult (ED) Additional Instructions: Please follow up with a primary care physician in the next few days. I have given you a referral for a local neurologist, Dr. Chamberlain, to follow up regarding her seizures. Continue with your seizure medications but short Depakote level was subtherapeutic today. I have given you an extra dose of the Depakote but you will need to see primary care or neurology. Please avoid any further alcohol or cocaine or illicit drug use as these substances can decrease your seizure threshold and cause further seizures. Return to the emergency depa rtment immediately with any further seizure-like activity, worsening of your symptoms, or with any acute distress. Prescriptions: Divalproex Dr [DepaKOTE DR] 500 mg PO BID #60 tablet Ibuprofen [Motrin 600 MG tab] 600 mg PO Q8H PRN #20 tablet PRN Reason: Pain Referrals: TONY CHAMBERLAIN MD [Referring] - 2-3 Days SHANICE DINH MD [Staff Physician] - 2-3 Days [facility] [Outside] - 2-3 Days Time of Disposition: 09:37
[2019-04-12] MEDS ORDERED: ACETAMINOPHEN 325 MG TAB ONE (06:16)
[2019-04-12] MEDS ORDERED: VALPROIC ACID 250 MG CAP PO NR (07:22)
--- NOTE | 2019-04-12 07:40 | Cat Scan Report ---
CT head without contrast INDICATION : Pt states he had a seizure with head injury.. TECHNIQUE: Axial imaging performed from the skull apex through the skull base without the use of con trast. All CT scans at this location are performed using CT dose reduction for ALARA by means of aut omated exposure control. COMPARISON: CT head from 03/21/2018 FINDINGS: Parenchyma: No acute intracranial hemorrhage or parenchymal abnormality. Ventricles: Ventricles are normal in size and appear symmetric. Soft tissues: Small right parietal scalp hematoma/swelling. Bones: No acute osseous abnormality. Sinuses: Sinuses and mastoid air cells are clear. IMPRESSION: Soft tissue injury along the scalp as above. Otherwise unremarkable exam. Signer Name: Adam Hoover MD Signed: 04/12/2019 7:35 AM Workstation Name: [id number]
[2019-04-12 08:37] VITALS: BP 122/77
[2019-04-12] MEDS ORDERED: KETOROLAC 30 MG/1 ML INJ IV ONE (08:41)
[2019-04-12 09:08] LABS: Amphetamine Screen,Urine PRESUMPTIVE NEGATIVE; Benzodiazepines Screen,Urine PRESUMPTIVE NEGATIVE; Methadone Screen,Urine PRESUMPTIVE NEGATIVE; Opiate Screen,Urine PRESUMPTIVE NEGATIVE
[2019-04-12 09:38] LABS: Cannabinoid Screen,Urine PRESUMPTIVE POSITIVE; Cocaine Screen,Urine PRESUMPTIVE POSITIVE
== END 2019-04-12 10:27 | disposition home or self-care (01) ==
LOC: ED 04:26
DX: R56.9 Unspecified convulsions (principal); F10.10 Alcohol abuse, uncomplicated; F14.10 Cocaine abuse, uncomplicated; F17.200 Nicotine dependence, unspecified, uncomplicated; F12.10 Cannabis abuse, uncomplicated; Z79.899 Other long term (current) drug therapy; Z88.6 Allergy status to analgesic agent
CPT/HCPCS: 36415; 70450; 80053; 80164; 80307; 82962; 83735; 85025; 96374; 96375; 99285; J1885; J1953; 80320; G0480

== ENCOUNTER 2019-04-19 22:37 | Emergency (ER) | payer SELFPAY ==
--- NOTE | 2019-04-19 23:08 | Emergency Department Report ---
ED Chest Pain HPI - General Chief Complaint: Chest Pain Stated Complaint: PAIN OVER BODY Time Seen by Provider: 04/19/19 23:01 Source: patient, EMS Mode of arrival: Stretcher Limitations: Physical Limitation - History of Present Illness Initial Comments: Patient is a 39-year-old male that presents emergency room with complaints of chest pain and back pain, fever, chills, dry cough, fatigue, body aches. Patient states all the symptoms started a.m. this morning. Patient states he did not have a flu shot this year. Patient states his pain is a 6 out of 10. Patient states his chest pain and back pain are worse with movement, coughing and palpation. Patient states that his pains are better with rest. Patient denies shortness of breath. MD Complaint: chest pain, other (Back pain) -: Sudden Onset: during rest Pain Location: substernal, left chest, right chest Pain Radiation: none Severity scale (0 -10): 4 Quality: tightness Consistency: constant Improves With: rest Worsens With: inspiration, palpation, movement, other re: denies: nausea, vomting, diaphoresis, dyspnea, sense of impending doom Other Symptoms: cough, fever. denies: syncope, rash, acid taste in mouth, leg swelling, palpitations, burping Treatments Prior to Arrival: none Aspirin use within the Past 7 Days: (0) No - Related Data On Oral Contraceptives: No Previous Rx's Medication Instructions Recorded Last Taken Type carBAMazepine [TEGretol] 200 mg PO BID #60 tablet 04/08/15 Unknown Rx PHENobarbitaL [PHENobarbital] 30 mg PO BID #60 tablet 08/10/17 Unknown Rx Acetaminophen [Tylenol Arthritis] 650 mg PO Q6HR PRN #30 tablet.er 03/21/18 Unk nown Rx Valproic Acid 500 mg PO BID #120 capsule 03/21/[address] [DepaKOTE DR] 500 mg PO BID #60 tablet 04/12/19 Unknown Rx Ibuprofen [Motrin 600 MG tab] 600 mg PO Q8H PRN #20 tablet 04/12/19 Unknown Rx Oseltamivir [Tamiflu] 75 mg PO BID 5 Days #10 cap 04/20/19 Unknown Rx Allergies Allergy/AdvReac Type Severity Reaction Status Date / Time aspirin Allergy Hives Verified 03/29/17 11:26 Heart Score - HEART Score History: Slightly suspicious EKG: Normal Age: < 45 Risk factors: No known risk factors Troponin: < normal limit HEART Score: 0 ED Review of Systems ROS: Stated complaint: PAIN OVER BODY Other details as noted in HPI Constitutional: chills, fever, malaise Eyes: denies: eye pain, eye discharge, vision change ENT: denies: ear pain, throat pain Respiratory: cough. denies: shortness of breath, wheezing Cardiovascular: chest pain. denies: palpitations Endocrine: no symptoms reported Gastrointestinal: denies: abdominal pain, nausea, diarrhea Genitourinary: denies: urgency, dysuria Musculoskeletal: back pain. denies: joint swelling, arthralgia Skin: denies: rash, lesions Neurological: denies: headache, weakness, paresthesias Psychiatric: denies: anxiety, depression Hematological/Lymphatic: denies: easy bleeding, easy bruising ED Past Medical Hx - Past Medical History Previous Medical History?: Yes Hx Seizures: Yes Additional medical history: Patient states he has a "slipped disc "in his back for over 5 years for which he takes chronic pain medication. States he's been out of his pain medication for 2 days. - Surgical History Past Surgical History?: No - Family History Family history: no significant - Social History Smoking Status: Current Every Day Smoker Substance Use Type: None - Medications Home Medications: Home Medications Medication Instructions Recorded Confirmed Last Taken Type carBAMazepine [TEGretol] 200 mg PO BID #60 tablet 04/08/15 03/21/18 Unknown Rx PHENobarbitaL [PHENobarbital] 30 mg PO BID #60 tablet 08/10/17 03/21/18 Unknown Rx Acetaminophen [Tylenol Arthritis] 650 mg PO Q6HR PRN #30 tablet.er 03/21/18 Unknown Rx Valproic Acid 500 mg PO BID #120 capsule 03/21/[address] [DepaKOTE DR] 500 mg PO BID #60 tablet 04/12/19 Unknown Rx Ibuprofen [Motrin 600 MG tab] 600 mg PO Q8H PRN #20 tablet 04/12/19 Unknown Rx Oseltamivir [Tamiflu] 75 mg PO BID 5 Days #10 cap 04/20/19 Unknown Rx ED Physical Exam - General Limitations: No Limitations General appearance: alert, in no apparent distress - Head Head exam: Present: atraumatic, normocephalic - Eye Eye exam: Present: normal appearance, PERRL Pupils: Present: normal accommodation - ENT ENT exam: Present: mucous membranes moist - Neck Neck exam: Present: normal inspection, full ROM. Absent: tenderness, meningismus - Respiratory Respiratory exam: Present: normal lung sounds bilaterally, chest wall tenderness. Absent: respiratory distress, wheezes, rales, accessory muscle use, decreased breath sounds, prolonged expiratory - Cardiovascular Cardiovascular Exam: Present: regular rate, normal rhythm. Absent: systolic murmur, diastolic murmur, rubs, gallop - GI/Abdominal GI/Abdominal exam: Present: soft, normal bowel sounds. Absent: distended, tenderness, guarding - Rectal Rectal exam: Present: deferred - Extremities Exam Extremities exam: Present: normal inspection - Back Exam Back exam: Present: normal inspection - Neurological Exam Neurological exam: Present: alert, oriented X3 - Psychiatric Psychiatric exam: Present: normal affect, normal mood - Skin Skin exam: Present: warm, dry, intact, normal color. Absent: rash ED Course Vital Signs 04/19/19 04/19/19 04/19/19 22:55 22:56 23:49 Temperature 101.4 F H 101.4 F H Pulse Rate 103 H 103 H Respiratory 16 19 Rate Blood Pressure 145/79 [Right] O2 Sat by Pulse 96 Oximetry 04/20/19 01:52 Temperature 99.8 F H Pulse Rate 85 Respiratory 16 Rate Blood Pressure 115/80 [Right] O2 Sat by Pulse 100 Oximetry - Reevaluation(s) Reevaluation #1: Patient states his pain has improved. I discussed all results and clinical findings with patient. I discussed plan of care with patient. Patient agrees with plan of care. Patient is stable for discharge. Patient will be discharged home. Patient given discharge instructions. Patient voiced understanding of discharge instructions. 04/20/19 00:50 JEREMIAH score - Jeremiah Score Age > 65: (0) No Aspirin use within the Past 7 Days: (0) No 3 or more CAD Risk Factors: (0) No 2 or more Angina events in past 24 hrs: (0) No Known CAD with more than 50% Stenosis: (0) No Elevated Cardiac Markers: (0) No ST Deviation Greater than 0.5mm: (0) No JEREMIAH Score: 0 ED Medical Decision Making - Lab Data Result diagrams: 04/19/19 23:21 04/19/19 23:21 - EKG Data -: EKG Interpreted by Me EKG shows normal: sinus rhythm, axis, intervals, QRS complexes, ST-T waves Rate: normal - Radiology Data Radiology results: report reviewed, image reviewed interpreted by me: No acute findings on chest x-ray. CHEST 1 VIEW 04/19/2019 10:54 PM INDICATION / CLINICAL INFORMATION: Chest Pain. COMPARISON: None available. FINDINGS: SUPPORT DEVICES: None. HEART / MEDIASTINUM: No significant abnormality. LUNGS / PLEURA: No significant pulmonary or pleural abnormality. No pneumothorax. ADDITIONAL FINDINGS: No significant additional findings. IMPRESSION: 1. No acute abnormality of the chest. - Medical Decision Making Patient is a 39-year-old male that presents emergency room with multiple complaints. Patient's chief complaints include back pain, chest pain, fever, cough. Patient's symptoms are clinically consistent with a upper respiratory infection and body aches. Patient chest pain and back pain is reproducible on palpation. Patient's EKG is negative for acute findings. Patient's chest x-ray is negative for acute findings. Patient's labs are unremarkable. Patient's flu and strep are negative. Patient given fluids in the ER. Patient given Tylenol and his fever improved. Patient will be treated for influenza. Patient's clinical findings are consistent with influenza and upper respiratory infection. Patient to be discharged home. Patient stable for discharge. - Differential Diagnosis URI, fever, chest pain, back pain, costochondritis, flu, body aches Critical care attestation.: If time is entered above; I have spent that time in minutes in the direct care of this critically ill patient, excluding procedure time. ED Disposition Clinical Impression: Generalized body aches, Influenza Fever Qualifiers: Fever type: unspecified Qualified Code(s): R50.9 - Fever, unspecified Chest pain Qualifiers: Chest pain type: unspecified Qualified Code(s): R07.9 - Chest pain, unspecified Back pain Qualifiers: Back pain location: back pain in unspecified location Chronicity: acute Back pain laterality: bilateral Qualified Code(s): M54.9 - Dorsalgia, unspecified Upper respiratory infection Qualifiers: URI type: unspecified URI Qualified Code(s): J06.9 - Acute upper respiratory infection, unspecified Disposition: - TO HOME OR SELFCARE Is pt being admited?: No Does the pt Need Aspirin: No Condition: Stable Instructions: Chest Pain (ED), Costochondritis (ED), Influenza (ED), Upper Respiratory Infection (ED), Viral Syndrome (ED), Cold Symptoms (ED) Additional Instructions: Patient to follow-up with primary care in 2 to 3 days. Patient to return to ER if condition worsens, changes or new symptoms arise. Patient to rest. Patient to increase water. Patient to stay off work until cleared by primary care. Patient to take Tylenol or ibuprofen as needed for pain. Patient to take meds as directed. Prescriptions: Oseltamivir [Tamiflu] 75 mg PO BID 5 Days #10 cap Referrals: PRIMARY CARE,MD [Primary Care Provider] - 2-3 Days Time of Disposition: 00:54
--- NOTE | 2019-04-19 23:25 | XRay Report ---
CHEST 1 VIEW 04/19/2019 10:54 PM INDICATION / CLINICAL INFORMATION: Chest Pain. COMPARISON: None available. FINDINGS: SUPPORT DEVICES: None. HEART / MEDIASTINUM: No significant abnormality. LUNGS / PLEURA: No significant pulmonary or pleural abnormality. No pneumothorax. ADDITIONAL FINDINGS: No significant additional findings. IMPRESSION: 1. No acute abnormality of the chest. Signer Name: Henry Osuna MD Signed: 04/19/2019 11:20 PM Workstation Name: [id number]
[2019-04-19] MEDS ORDERED: ACETAMINOPHEN 325 MG TAB ONE (23:47)
[2019-04-19] MEDS: ASPIRIN 325 MG TAB PO ONE (23:48)
[2019-04-19] MEDS: ACETAMINOPHEN 325 MG TAB PO ONE (23:49)
[2019-04-19 23:52] LABS: Hematocrit 43.8 % (35.5-45.6); Hemoglobin 14.8 gm/dl (11.8-15.2); Mean Corpuscular HGB Conc 34 % (32-34); Mean Corpuscular Volume 89 fl (84-94); Platelet Count 196 K/mm3 (140-440); Red Cell Distribution Width 13.3 % (13.2-15.2)
[2019-04-20 00:20] LABS: BUN/Creatinine Ratio 8; Blood Urea Nitrogen 10 mg/dL (9-20); Calcium 9.8 mg/dL (8.4-10.2); Hemolysis Index 3
[2019-04-20] MEDS: SODIUM CHLORIDE 0.9% 1000 ML 1,000 ML IV ONE (00:37)
[2019-04-20 02:07] VITALS: BP 115/80
[2019-04-20 05:14] LABS: Anisocytosis 1+; Eosinophils % (Manual) 0 % (0.0-4.3); Platelet Estimate Consistent w Auto; Total Cells Counted 100
== END 2019-04-20 01:52 | disposition home or self-care (01) ==
LOC: ED 22:37
DX: J11.1 Influenza due to unidentified influenza virus with other respiratory manifestations (principal); M54.9 Dorsalgia, unspecified; G40.909 Epilepsy, unspecified, not intractable, without status epilepticus; F17.200 Nicotine dependence, unspecified, uncomplicated; Z79.1 Long term (current) use of non-steroidal anti-inflammatories (NSAID); Z79.899 Other long term (current) drug therapy; Z88.8 Allergy status to other drugs, medicaments and biological substances
CPT/HCPCS: 36415; 71045; 80048; 84484; 85007; 85025; 87116; 87400; 87430; 93005; 93010; 99285; J7030